=== PATIENT | female | born 1995 | race Caucasian/White ===

== ENCOUNTER 2024-01-12 10:15 | Inpatient (IN) | payer BC, SELFPAY ==
[2024-01-12] VITALS (20 sets, daily range): BP systolic 85–123; BP diastolic 59–78; PULSE 69–111; RESP 16–20; TEMP 36.2–36.9; BMI 34.4
[2024-01-12 11:02] LABS: ROM Kit Lot # 57805053; ROM Swab Mixed By: MEDIA1; Rupture of Fetal Membranes Positive (Negative); Swb Mxed in Solvent 1 min? Yes
--- NOTE | 2024-01-12 11:11 | XR_ITS ---
Examination: Complete OB ultrasound greater than 14 weeks Date and time of exam: January 12, 2024 1122 hours INDICATIONS: Leaking amniotic fluid beginning last night Findings: Viable intrauterine single fetus with single amniotic sac presentation cephalic Cardiac motion 145 BPM Placenta anterior grade 3 Umbilical cord insertion 3 vessel seen Amniotic fluid index 17.2 cm spine maternal right Cervix 2.7 cm closed Ovaries obscured by bowel gas. Composite estimated gestational age based on BPD, head circumference, abdominal circumference, femur length is 34 weeks 6 days Estimated weight 2525 g. Survey of intracranial anatomy, spinal anatomy, abdominal anatomy, four-chamber heart performed with no abnormalities identified. Impression: Viable intrauterine gestation cephalic presentation Amniotic fluid index 17.2 cm.
[2024-01-12 11:40] LABS: Basophils % (Auto) 0 % (0-2.5); Eosinophils # (Auto) 0.1 Thou/mm3 (0.0-0.5); Eosinophils % (Auto) 0 % (0-10); Hematocrit 40.4 % (36.0-46.0); Immature Granulocytes % (Auto) 1 % (0-0); Immature Granulocytes Auto 0.08 Thou/mm3 (0.00-0.00); Lymphocytes # (Auto) 2.7 Thou/mm3 (1.0-4.8); Lymphocytes % (Auto) 22 % (10-50); Mean Corpuscular HGB Conc 34.7 g/dl (31.0-37.0); Mean Corpuscular Volume 87 fL (80-100); Monocytes # (Auto) 0.6 Thou/mm3 (0.0-0.8); Monocytes % (Auto) 5 % (0-12); Neutrophils # (Auto) 8.8 Thou/mm3 (1.8-7.7); Neutrophils % (Auto) 72 % (37-80); Nucleated Red Blood Cell % 0 /100 WBC (0); Platelet Count 221 Thou/mm3 (140-440); RDW Standard Deviation 39.9 fL (36.4-46.3); Red Blood Count 4.66 Miln/mm3 (4.00-5.20); White Blood Count 12.2 Thou/mm3 (3.6-11.0)
[2024-01-12] MEDS: RINGERS LACTATED 1000 ML 1,000 ML 100 ML IV ×2 (12:08→23:17)
[2024-01-12] MEDS: Ampicillin Inj 2,000 MG in SODIUM CHLORIDE 0.9% (P) 100 ML 200 MG IV (12:08)
[2024-01-12] MEDS: BETAMET ACET/BETAMET NA PH (Celestone) 6 MG/ML VIAL 12 MG IM (12:15)
--- NOTE | 2024-01-12 13:17 | ESHP_ITS ---
RE: ROSALES WILEY : 1995 DATE OF ADMISSION: 01/12/2024 HISTORY OF PRESENT ILLNESS: This is a 28-year-old 1, para 0, with intrauterine at 34 weeks and 5 days, who presents to labor and delivery, complaining of leaking fluid since 6:00 last night. She just had one episode of leaking and on presentation to labor and delivery she underwent an AmniSure test, which showed positive consistent with rupture of membranes. Ultrasound shows estimated weight 2525 grams, MATHEW of 7.2, cephalic presentation. White blood cell count is 12.2, hemoglobin is 4.0. The patient's care was complicated by an abnormal finding on her ultrasound showing a liver calcification that was solitary measuring 5.7 x 2.8 x 4.6 in the right upper lobe of the liver and at the time the patient underwent a viral testing for toxoplasmosis, parvovirus and CMV which was all negative. There were serial ultrasounds during her for maternal medicine and the most recent on 12/29/2023 showed growth at the 80 first percentile at 2338 grams. The patient denies any contractions. She reports normal movement. ALLERGIES: NO KNOWN DRUG ALLERGIES. HOME MEDICATIONS: 1. Omeprazole 20 mg 1 p.o. daily. 2. vitamin 1 p.o. daily. SOCIAL HISTORY: She denies any alcohol, drug use or smoking. PAST MEDICAL HISTORY: Gastroesophageal reflux disease. PAST SURGICAL HISTORY: Tonsillectomy, wisdom teeth removal. FAMILY HISTORY: Mother, breast cancer. REVIEW OF SYSTEMS: She denies any chest pain, palpitations, cough, fever, shortness of breath, or lower extremity pain. PHYSICAL EXAMINATION: VITAL SIGNS: Blood pressure 120/69, heart rate 88, respirations 18, temperature is 98.2, weight 199 pounds. HEENT: Oropharynx and sclerae are clear. LUNGS: Clear to auscultation bilaterally. CARDIOVASCULAR: Heart, regular rate and rhythm. ABDOMEN: Gravid with estimated weight 2025 grams. PELVIC: See RN notes EXTREMITIES: Nontender. SKIN: No gross rashes or lesions. NEUROLOGIC: No focal deficit. ASSESSMENT: Intrauterine at 34 weeks and 5 days, premature rupture of membranes, solitary liver calcification without evidence of viral infection. PLAN: Induction of labor. Informed consent was obtained. The patient was made aware of the risks, complications, alternatives, and benefits of operative vaginal delivery and delivery and agrees with these modes of delivery if indicated. Betamethasone and ampicillin for group B strep prophylaxis. Betamethasone for lung maturity. Case discussed with Dr. Peralta. sales development executive. DT: 12:26:43 TT: 13:16:00 Ref: [id number] - TID: [id number] MTDD
[2024-01-12] MEDS: MISOPROSTOL 50 mCg TABLET PO (14:16)
[2024-01-12 15:51] LABS: Syphilis Nonreactive (Nonreactive)
[2024-01-12] MEDS: Ampicillin Inj 1,000 MG in SODIUM CHLORIDE 0.9% (P) 50 ML 50 MG IV ×2 (17:08→21:04)
[2024-01-12 18:05] LABS: Amphetamine/Metham Scrn,Ur OB Negative (Negative); Benzoylecgonine Screen, Ur OB Negative (Negative); Opiate Screen,Urine OB Negative (Negative); THC Screen,Urine OB Negative (Negative)
[2024-01-12] MEDS: TERBUTALINE SULF INJ 1 MG/ML VIAL 0.25 MG SC (20:48)
[2024-01-13] VITALS (91 sets, daily range): BP systolic 82–123; BP diastolic 51–77; PULSE 53–105; RESP 18; TEMP 36.7–37; O2SAT 91–100
[2024-01-13] MEDS: BETAMET ACET/BETAMET NA PH (Celestone) 6 MG/ML VIAL 12 MG IM (00:51)
[2024-01-13] MEDS: Ampicillin Inj 1,000 MG in SODIUM CHLORIDE 0.9% (P) 50 ML 50 MG IV ×3 (01:28→07:12)
[2024-01-13] MEDS: OXYTOCIN in NS 30 units 30 UNIT/500 ML BAG IV (02:59)
--- NOTE | 2024-01-13 09:54 | PD.LDPN ---
Documentation for date of: 01/13/24 OB Labor Progress Note Pain Control Comments: None Pelvic Exam Dilation (cm): 3 Effacement (%): 70 station: -1 Amniotic membrane status: Ruptured Comments: Forebag ruptured clear fluid Contractions Contraction frequency: q3m Status status: Category l Assessment and Plan Comments: Anticipate Betamethasone x 2 given Ampicillin GBS prophylaxis
[2024-01-13] MEDS: RINGERS LACTATED 1000 ML 1,000 ML 100 ML IV (11:37)
--- NOTE | 2024-01-13 13:24 | PD.LDPN ---
Documentation for date of: 01/13/24 OB Labor Progress Note Pain Control Comments: Epidural Pelvic Exam Dilation (cm): 10 Effacement (%): 100 station: +1 Amniotic membrane status: Ruptured Comments: Caput No molding. Contractions Contraction frequency: q3m Status status: Category ll Assessment and Plan Comments: 2nd Stage Labor Pitocin discontinued due late decelerations with resolution of the late decelerations Encourage Pushing Anticipate .
[2024-01-13] MEDS: MINERAL OIL 30 ML UDC TOP (14:28)
[2024-01-13] MEDS: OXYTOCIN in NS 20 units 20 UNIT/1,000 ML BAG 125 UNIT IV (14:29)
--- NOTE | 2024-01-13 14:58 | OBDSUM_ITS ---
Data ([facility]e) Data : 1 Para: 0 Term: 0 : 0 : 0 Delivery Data ([facility]e) Labor Data Stimulated/Augmented: Yes Method: Oxytocin ROM Date: 01/11/24 ROM Time: 18:00 Rupture Type: SROM Amniotic Fluid: Clear Delivery Data EDC: 02/18/24 EDC calculated by:: LMP/early US confirmation Labor Onset Stage 1 Date: 01/13/24 Labor Onset Stage 1 Time: 11:00 Labor Onset Stage 2 Date: 01/13/24 Labor Onset Stage 2 Time: 13:25 Delivery Date: 01/13/24 Delivery Time: 14:21 Gestational age (weeks): 34 Gestational age (days): 6 Placenta Delivery Date: 01/13/24 Placenta Delivery Time: 14:27 Delivered by: Hayder Virk Delivery nurse: Carlota Ash Other staff at delivery: Nurse Other staff at delivery: Baby Care/Deck Molder Other staff at delivery: Nursery Nurse Other staff at delivery: Other staff at delivery: Sarita Hernández Other staff at delivery: MD Peralta Omid Other staff at delivery: Goldie Other staff at delivery: Usha Delivery Method Delivery: Vaginal Delivery Type: Spontaneous Presentation: Vertex Position: OP Anesthesia Type Primary Anesthesia: Epidural Placenta Placenta Delivery: Spontaneous Placenta Sent for Examination: Yes Episiotomy Episiotomy: Midline Perineal repair Sutures used for repair: 3.0 Chromic EBL Estimated blood loss (ml): 250 Umbilical Cord Umbilical Vessels: 3 Nuchal Cord: x1 Additional Procedures None Complications Complications: None Data ([facility]) [place] Data Gender: Female Weight Grams: 2710 1 Minute Total: 9 5 Minute Total: 9
--- NOTE | 2024-01-13 14:58 | PD.LDDS ---
DS: Providers Provider Date of admission: 01/12/24 11:10 Primary care physician: Physician No Primary/Family Admitting Provider: Hayder Virk MD Attending Provider on Admission: Hayder Virk MD Attending Provider on DC: Hayder Virk MD Discharging Provider: Hayder Virk MD DS: Diagnosis Problem List Completed Was Problem List Reviewed/Reconciled?: Yes Summary/Hosp Course Time Spent with Patient Time attestation: Total time spent providing and/or coordinating discharge services: Exam Vital Signs Temp Pulse Resp BP Pulse Ox 98.1 F 60 20 103/55 L 99 01/13/24 07:16 01/13/24 14:51 01/12/24 21:50 01/13/24 14:51 01/13/24 13:13 Discharge Plan Plan Patient Disposition: HOME (Self Care) Patient condition on transfer: Stable Prescriptions/Referrals Prescriptions/Med Rec: New ibuprofen 600 mg tablet 600 mg PO Q6H PRN (Reason: pain) Qty: 30 0RF Continued omeprazole 20 mg capsule,delayed release(DR/EC) 20 mg PO QDAY Plus (calcium carb) 27 mg iron- 1 mg tablet 1 tab PO QDAY Patient Comments: Take 1 tablet by mouth once a day Referrals: No Primary/Family,Physician [Primary Care Provider] - Patient/Caregiver Discharge Instructions Discharge Activity: activity as tolerated Other Discharge Activity Instructions:: Follow up office 6 weeks Education Materials: After a Vaginal , : Caring for Yourself Print Language: Israeli Activity Restrictions/Additional Instructions: Follow up office 6 weeks Stand Alone Forms: Ariana Award Info., Patient Portal Info Letter Discharge Order Discharge Orders: Discharge (Routine); Ordered 01/15/24 Ordered By: Hayder Virk Planned Discharge Date 01/15/24
--- NOTE | 2024-01-13 20:57 | PC.NURSE ---
01/13/24 2000: Education provided on fall precautions, dermaplast topical spray, PPH s/sx, and pain management
[2024-01-13 21:58] LABS: Basophils % (Auto) 0 % (0-2.5); Eosinophils % (Auto) 0 % (0-10); Hematocrit 35.1 % (36.0-46.0); Hemoglobin 11.9 g/dL (12.0-16.0); Immature Granulocytes % (Auto) 1 % (0-0); Immature Granulocytes Auto 0.19 Thou/mm3 (0.00-0.00); Lymphocytes # (Auto) 2.1 Thou/mm3 (1.0-4.8); Lymphocytes % (Auto) 9 % (10-50); Mean Corpuscular HGB Conc 33.9 g/dl (31.0-37.0); Mean Corpuscular Hemoglobin 29.8 pg (25.0-35.0); Mean Corpuscular Volume 88 fL (80-100); Monocytes # (Auto) 1.5 Thou/mm3 (0.0-0.8); Monocytes % (Auto) 7 % (0-12); Neutrophils # (Auto) 19.3 Thou/mm3 (1.8-7.7); Neutrophils % (Auto) 84 % (37-80); Nucleated Red Blood Cell % 0 /100 WBC (0); Platelet Count 222 Thou/mm3 (140-440); White Blood Count 23.1 Thou/mm3 (3.6-11.0)
--- NOTE | 2024-01-13 22:40 | PC.NURSE ---
01/12/21 2200: Covered pts. IV site. Pt showered. Tolerated well
[2024-01-14] VITALS: BP 94/59; PULSE 76; RESP 18; TEMP 36.9; O2SAT 96
[2024-01-14 04:00] VITALS: BP 95/61; PULSE 76; RESP 18; TEMP 37; O2SAT 96
[2024-01-14] MEDS: ACETAMINOPHEN 325 MG TABLET 650 MG PO ×2 (04:40→16:44)
--- NOTE | 2024-01-14 04:50 | PC.NURSE ---
01/14/24 0430: Educated pt. on increased risk of infection due to MLE, explained s/sx to be aware of and when to notify nurse while inpatient and OB post discharge.
[2024-01-14 07:50] VITALS: BP 108/72; PULSE 89; RESP 18; TEMP 36.8; O2SAT 97
[2024-01-14 11:10] VITALS: BP 105/71; PULSE 76; RESP 17; TEMP 36.6; O2SAT 97
--- NOTE | 2024-01-14 11:15 | ESPR_ITS ---
RE: ROSALES WILEY : 1995 DATE OF SERVICE: 01/14/2024 S: day #1, the patient denies any problem or complaint. She is voiding. She is ambulating. She is tolerating diet. She is passing flatus. She denies any excessive vaginal bleeding. She denies any chest pain, palpitation, shortness of breath, or lower extremity pain. VITAL SIGNS: Stable. She is afebrile. LUNGS: Clear to auscultation bilaterally. HEART: Regular rate and rhythm. ABDOMEN: Fundus is firm, nontender. EXTREMITIES: Nontender. A: day #1, status post spontaneous vaginal delivery. P: Continue care. Requesting Reglan for increased breast milk production. The patient aware not FDA approved for this purpose, but willing to take understanding the side effects, which can include tardive dyskinesia. I explained this to the patient as a potentially reversible and disfiguring disorder characterized by involuntary movements of the face, tongue or extremities and that the incidence can range from 3-8%. The patient agrees to take the medication. Possible discharge home tomorrow. Baby remains in NICU due to prematurity. DT: 09:36:28 TT: 11:13:00 Ref: [id number] - TID: [id number]
[2024-01-14 20:00] VITALS: BP 96/64; PULSE 83; RESP 18; TEMP 36.6; O2SAT 96
--- NOTE | 2024-01-14 20:16 | PC.NURSE ---
01/14/241999: Spoke with pt. regarding scheduled medication, reglan 10mg PO scheduled for 2099. Pt states she has good milk production currently and wants to hold off on medication; currently refused.
[2024-01-15] VITALS: BP 102/69; PULSE 70; RESP 18; TEMP 36.6; O2SAT 98
[2024-01-15] MEDS: ACETAMINOPHEN 325 MG TABLET 650 MG PO (03:41)
[2024-01-15 04:00] VITALS: BP 113/75; PULSE 67; RESP 16; TEMP 36.7; O2SAT 97
[2024-01-15 07:55] VITALS: BP 102/70; PULSE 80; RESP 16; TEMP 36.9; O2SAT 96
--- NOTE | 2024-01-15 08:20 | ESPR_ITS ---
RE: ROSALES WILEY : 1995 DATE OF SERVICE: 01/15/2024 S: day #2, the patient denies any problem or complaint. O: Vital Signs: Stable, she is afebrile. Abdomen: Fundus is firm. Extremities: Nontender. A: day #2, status post normal vaginal delivery of infant. remains in ICU under bilirubin lights. P: Discharge home, but allow the patient to room in. Followup in the office in 6 weeks. DT: 07:52:52 TT: 08:18:00 Ref: [id number] - TID: [id number]
--- NOTE | 2024-01-15 10:46 | PC.SS ---
PATIENT ACCOUNT ANALYST conducted bedside contact with the patient to address nursing referral indicating patient possessed mild level of anxiety. PATIENT ACCOUNT ANALYST introduced self, role and basis of contact. Patient stated that level of anxiety circumstantial due to ?s admission to NICU. [place] is the patient?s first child. 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 Patient denies history of alcohol/drug use. Patient denies CWS intervention. Patient denies episodes of domestic violence. Patient states consistency with OB appointments. Patient has access to appropriate supplies and equipment. Patient has access to car seat. [facility] will provide transportation upon discharge. Patient describes possessing support system consisting of FOB, parents and extended family. No further intervention required at this time, social worker aide will be available to address any further concerns. PATIENT ACCOUNT ANALYST updated bedside nurse.
== END 2024-01-15 11:40 | disposition home or self-care (01) | DRG 807 ==
LOC: S4SX 01-13 14:54 → S4NX 01-13 17:06
PROVIDERS: Admitting Provider Specialist; Visit Provider Specialist
DX: O42.113 Preterm premature rupture of membranes, onset of labor more than 24 hours following rupture, third trimester (principal); Z37.0 Single live birth; O69.81X0 Labor and delivery complicated by cord around neck, without compression, not applicable or unspecified; O76 Abnormality in fetal heart rate and rhythm complicating labor and delivery; Z3A.34 34 weeks gestation of pregnancy
CPT/HCPCS: 36415; 59409; 76805; 80307; 84112; 85025; 86780; 86850; 86900; 86901; J0290; J0702; J2590; J2795; J3010; J3105; J7050; J7120; A9270

== ENCOUNTER 2024-04-25 09:18 | Outpatient (AMBR) | payer SELFPAY | END 2024-05-20 23:59 | disposition home or self-care (01) | LOC: HODLAC 09:18 | DX: Z39.1 Encounter for care and examination of lactating mother (principal) ==